=== PATIENT | male | born 1965 | race Caucasian/White ===

== ENCOUNTER 2024-08-16 15:24 | Inpatient (IN) | payer OTHER ==
[~2024-08-16] VITALS: Ht 162.6 cm; Wt 60.0 kg
[2024-08-16] MEDS: DOXYCYCLINE HYCLATE 100 MG TABLET PO ONE (17:24)
[2024-08-16] MEDS: CEPHALEXIN MONOHYDRATE 500 MG CAPSULE PO ONE (17:24)
[2024-08-16 17:29] LABS: BASOPHILS % (AUTO) 0.4 % (0.0-2.0); EOSINOPHILS % (AUTO) 3.9 % (1.0-6.0); HEMATOCRIT 39.3 % (41-53); HEMOGLOBIN 13.1 g/dL (13.5-17.5); LYMPHOCYTES # (AUTO) 2.1 K/uL (1.0-4.8); LYMPHOCYTES % (AUTO) 33.9 % (22.0-44.0); MEAN CORPUSCULAR HEMOGLOBIN 32.3 pg (26.0-34.0); MEAN CORPUSCULAR HGB CONC 33.2 G/dL (31.0-37.0); MEAN CORPUSCULAR VOLUME 97 fL (80-100); MONOCYTES # (AUTO) 0.6 K/uL (0.1-1.0); NEUTROPHILS # (AUTO) 3.3 K/uL (1.8-7.7); NEUTROPHILS % (AUTO) 52.8 % (40.0-70.0); PLATELET COUNT (AUTO) 321 K/uL (150-450); RED BLOOD CELL COUNT(AUTO) 4.04 MIL/uL (4.50-5.90); RED CELL DISTRIBUTION WIDTH 13.6 % (11.5-14.5); WHITE BLOOD COUNT (AUTO) 6.2 K/uL (4.5-11.0)
[2024-08-16 17:37] LABS: ANION GAP 4 mmol/L (8-16); CARBON DIOXIDE 29 mmol/L (22-29); CHLORIDE 104 mmol/L (98-107); CREATININE 0.87 mg/dL (0.60-1.30); GLOMERULAR FILTR. RATE CALC > 60 mL/min (>60); GLUCOSE,RANDOM 90 mg/dL (70-110); POTASSIUM 4.5 mmol/L (3.5-5.1); SODIUM SERUM 137 mmol/L (136-145); UREA NITROGEN, BLOOD 12 mg/dL (7-18)
[2024-08-16] MEDS ORDERED: ACETAMINOPHEN 325 MG TABLET PO PRN (21:45)
[2024-08-16] MEDS ORDERED: IPRATROPIUM BROMIDE 0.5 MG/2.5 ML NEB SOLUTION NEB PRN (21:45)
[2024-08-16] MEDS ORDERED: MAGNESIUM HYDROXIDE SUSPENSION 30 ML UDCUP PO PRN (21:45)
[2024-08-16] MEDS ORDERED: ONDANSETRON HCL 4 MG/2 ML VIAL IVP PRN (21:45)
[2024-08-16] MEDS ORDERED: BISACODYL 10 MG RECTAL RECTAL SUPPOSITORY PR PRN (21:45)
[2024-08-16] MEDS ORDERED: ALBUTEROL SULFATE 2.5 MG/0.5 ML NEB SOLUTION NEB PRN (21:45)
[2024-08-16] MEDS: VANCOMYCIN HCL 1.25 GM in DEXTROSE 5%-WATER 250 ML IV ONE (22:50)
[2024-08-16 23:23] VITALS: BP 147/78; PULSE 64; RESP 18; TEMP 97.9; O2SAT 99
[2024-08-16] MEDS ORDERED: LAMI150T33 PO (23:33)
[2024-08-16] MEDS ORDERED: TENO300 PO (23:37)
[2024-08-16] MEDS ORDERED: DOLU50TA PO (23:39)
[2024-08-16] MEDS ORDERED: SULF1TAB41 PO (23:42)
[2024-08-16] MEDS ORDERED: IBUP-1492 PO (23:45)
[2024-08-17] MEDS: HEPARIN SODIUM,PORCINE 5,000 UNITS/ML VIAL SQ SCH
[2024-08-17 06:01] VITALS: BP 122/80; PULSE 66; RESP 18; TEMP 97.6; O2SAT 98
[2024-08-17 06:57] LABS: ANION GAP 5 mmol/L (8-16); CALCIUM, TOTAL 8.9 mg/dL (8.8-10.5); CARBON DIOXIDE 29 mmol/L (22-29); CHLORIDE 106 mmol/L (98-107); CREATININE 0.89 mg/dL (0.60-1.30); GLOMERULAR FILTR. RATE CALC > 60 mL/min (>60); GLUCOSE,RANDOM 80 mg/dL (70-110); SODIUM SERUM 140 mmol/L (136-145); UREA NITROGEN, BLOOD 10 mg/dL (7-18)
[2024-08-17 08:02] VITALS: BP 132/79; PULSE 64; RESP 18; TEMP 98.4; O2SAT 98
[2024-08-17] MEDS: PANTOPRAZOLE SODIUM 40 MG DR TABLET PO SCH (08:07)
[2024-08-17] MEDS: VANCOMYCIN 1GM/WATER(PEG/NADA) 200 ML IV SCH (08:08)
[2024-08-17] MEDS ORDERED: IBUPROFEN 600 MG TABLET PO PRN (14:30)
[2024-08-17 20:12] VITALS: BP 108/68; PULSE 88; RESP 18; TEMP 97.5; O2SAT 97
[2024-08-17] MEDS: ETHYL ALCOHOL 62% ANTISEPTIC NASAL SANITIZER 0.6 ML AMPUL NASAL SCH (20:17)
[2024-08-17] MEDS: ZOLPIDEM TARTRATE 5 MG TABLET PO PRN (21:13)
[2024-08-18 04:40] VITALS: BP 111/70; PULSE 63; RESP 18; TEMP 97.9; O2SAT 96
[2024-08-18 07:40] LABS: ANION GAP 8 mmol/L (8-16); CALCIUM, TOTAL 8.9 mg/dL (8.8-10.5); CARBON DIOXIDE 27 mmol/L (22-29); CHLORIDE 103 mmol/L (98-107); CREATININE 0.94 mg/dL (0.60-1.30); GLOMERULAR FILTR. RATE CALC > 60 mL/min (>60); GLUCOSE,RANDOM 79 mg/dL (70-110); POTASSIUM 3.8 mmol/L (3.5-5.1); SODIUM SERUM 138 mmol/L (136-145); UREA NITROGEN, BLOOD 16 mg/dL (7-18); VANCOMYCIN,RANDOM 15.3 mcg/mL (25.0-50.0)
[2024-08-18] MEDS: DOLUTEGRAVIR SODIUM 50 MG TABLET PO SCH (07:57)
[2024-08-18] MEDS: TENOFOVIR DISOPROXIL FUMARATE 300 MG TABLET PO SCH (07:57)
[2024-08-18 08:00] VITALS: BP 114/66; PULSE 66; RESP 18; TEMP 97.4; O2SAT 98
[2024-08-18 19:52] VITALS: BP 110/67; PULSE 78; RESP 18; TEMP 98.6; O2SAT 95
[2024-08-19 04:39] VITALS: BP 118/73; PULSE 67; RESP 18; TEMP 98.1; O2SAT 98
[2024-08-19 07:28] LABS: ANION GAP 8 mmol/L (8-16); CALCIUM, TOTAL 9.1 mg/dL (8.8-10.5); CARBON DIOXIDE 29 mmol/L (22-29); CHLORIDE 102 mmol/L (98-107); CREATININE 0.95 mg/dL (0.60-1.30); GLOMERULAR FILTR. RATE CALC > 60 mL/min (>60); GLUCOSE,RANDOM 87 mg/dL (70-110); SODIUM SERUM 139 mmol/L (136-145); UREA NITROGEN, BLOOD 15 mg/dL (7-18)
[2024-08-19 08:14] VITALS: BP 122/75; PULSE 65; RESP 18; TEMP 98.1; O2SAT 97
[2024-08-19] MEDS ORDERED: ETHY1MED2 NASAL (17:16)
[2024-08-19] MEDS ORDERED: DOLUTEGRAVIR SODIUM 50 MG TABLET PO SCH (20:00)
[2024-08-19] MEDS ORDERED: TENOFOVIR DISOPROXIL FUMARATE 300 MG TABLET PO SCH (20:00)
== END 2024-08-19 20:11 | DRG 156 ==
LOC: EMS 15:32 → EDH 21:35 → 6N 23:00
PROVIDERS: ADMIT Hospitalist; ATTEND Hospitalist
DX: J34.0 Abscess, furuncle and carbuncle of nose (principal); F41.9 Anxiety disorder, unspecified; F32.A Depression, unspecified; Z86.14 Personal history of Methicillin resistant Staphylococcus aureus infection; Z79.899 Other long term (current) drug therapy; Z88.8 Allergy status to other drugs, medicaments and biological substances
CPT/HCPCS: 80048; 80202; 85025; 87081; 99285; J1644; J7060